=== PATIENT | female | born 1970 | race Caucasian/White ===

== ENCOUNTER 2022-09-15 16:42 | Emergency (ER) | payer SELFPAY ==
[2022-09-15 16:57] VITALS: BP 156/98; PULSE 77; TEMP 36.6; O2SAT 98; BMI 52.0
[2022-09-15 17:31] LABS: Add Urine Culture? Yes; Add Urine Microscopic? YES; Bacteria Urine 2+ /hpf; Bilirubin Urine Neg (Negative); Blood Urine 3+ (Negative); Glucose Urine UA Norm (Normal); Ketones Urine Negative (Negative); Leukocyte Esterase Urine 2+ (Negative); Nitrate Urine Negative (Negative); Protein Urine Neg (Negative); Specific Gravity, Urine 1.025 (1.005-1.030); Urine Appearance Hazy (CLEAR); Urine Color Straw (Yellow); Urobilinogen Urine Norm (Negative); WBC Urine 40-55 /hpf (0-5); pH Urine 5 (5-7)
[2022-09-15 18:09] LABS: Basophils # 0.1 10^3/uL (0.0-0.1); Basophils % 0.7 %; Eosinophils # 0.5 10^3/uL (0.0-0.8); Eosinophils % 5.1 %; Hematocrit 42.9 % (37.0-47.0); Hemoglobin 13.8 g/dL (11.5-15.3); Lymphocytes # 3.3 10^3/uL (0.8-4.8); Lymphocytes % 33.4 %; Mean Corpuscular HGB Conc 32.2 g/dL (30.0-36.0); Mean Corpuscular Hemoglobin 31.7 pg (28.0-34.0); Mean Corpuscular Volume 98.4 fl (81-99); Mean Platelet Volume 10.8 fL (7.4-10.4); Monocytes # 0.7 10^3/uL (0.2-0.9); Monocytes % 7.2 %; Neutrophils # 5.25 10^3/uL (1.8-7.7); Neutrophils % 53.3 %; Nucleated Red Blood Cells % 0 %; Platelet Count 190 10^3/cmm (130-400); Red Blood Count 4.36 10^6/uL (4.1-5.3); Red Cell Distribution Width 12.9 % (12.1-15.1); White Blood Count 9.9 10^3/uL (4.0-10.0)
[2022-09-15 18:28] LABS: Alanine Aminotransferase 22 U/L (0-33); Albumin Level 3.9 g/dL (3.5-5.2); Alkaline Phosphatase 78 U/L (35-105); Anion Gap 10.3 (5-19); Aspartate Amino Transferase 17 U/L (0-32); Blood Urea Nitrogen 14 mg/dL (6-20); Carbon Dioxide 28 mmol/L (22-29); Chloride 98 mmol/L (98-107); Globulin 2.6 g/dL (1.3-4.6); Glomerular Filtration Rate 104.6 mL/min (90-130); Glucose 90 mg/dL (65-115); Lipase 64 U/L (13-60); Osmolality Calculated 274 mOsm/kg (285-295); Potassium 4.3 mmol/L (3.5-5.1); Sodium 132 mmol/L (136-145); Total Bilirubin 0.3 mg/dL (0.15-1.2); Total Protein 6.5 g/dL (6.6-8.7)
[2022-09-15 18:34] LABS: HCG, Serum Qual Negative (Negative)
[2022-09-15 19:39] VITALS: PULSE 75; RESP 16; TEMP 36.7; O2SAT 98
--- NOTE | 2022-09-15 19:40 | W.ED.GENADLT ---
HPI - General Adult General: Chief complaint: Abdominal Pain Stated complaint: sore on leg/urinary pain Time Seen by Provider: 09/15/22 19:19 History of Present Illness: Ms. Rich is a 52-year-old lady presenting to the emergency department with 2 separate concerns. Endorses history of low back pain however now is developed left flank pain for few days without known specific provoking event. She also endorses left leg pain with a red swollen lesion on the anterior frey. Reports some pain in the posterior knee. Symptoms are worse with palpation and movement. Moderate to severe in intensity. Works in [employer] but denies frequent skin infections. No other specific changes in health, exacerbating, or alleviating factors identified. Onset (ago): day(s) Location: back and lower extremity Severity: moderate Quality: stabbing and aching Pain Consistency: constant Exacerbating factors: movement Associated symptoms: Reports no associated symptoms Review of Systems General: Reports: 10 or more systems reviewed and unremarkable except in HPI and below PFSH ED PFSH: Family History Mother Heart attack Hypertension Diabetes Father , at age 50 Heart attack Social History Smoking and tobacco status: current every day smoker Alcohol intake: never Marital status: Single Current occupational status: employed Current occupation: [employer] Physical Exam Const: COMMON NORMALS: alert GENERAL APPEARANCE: cooperative and well developed HENMT: COMMON NORMALS: normocephalic and atraumatic HEAD & SCALP: normocephalic and atraumatic Eye: COMMON NORMALS: conjunctivae normal CONJUNCTIVA: Yes conjunctivae normal SCLERA: sclerae normal Neck/C-Spine: COMMON NORMALS: supple GENERAL: Yes trachea midline Resp: COMMON NORMALS: normal respiratory effort EFFORT & INSPECTION: Yes able to speak in complete sentences Cardio: COMMON NORMALS: regular rate and regular rhythm RATE: regular rate RHYTHM: regular rhythm GI: COMMON NORMALS: Soft to palpation PALPATION: Yes Soft to palpation and No Tenderness to palpation present (GI) Extremity: NARRATIVE EXTREMITY EXAM: Left lower extremity anterior frey with erythema and swelling, no obvious ulcerations. Distal CMS intact. GENERAL: Yes normal exam except as noted and No edema Neuro: COMMON NORMALS: moves all extremities SENSORIUM/ORIENTATION: Yes alert and No Orientation impaired Psych: COMMON NORMALS: mental status grossly normal and Normal thought process present THOUGHT PROCESS: Normal thought process present Course Vital Signs: Vital signs: Vital Signs Temperature 98.1 F 09/15/22 19:39 Pulse Rate 73 09/15/22 21:57 Respiratory Rate 14 09/15/22 21:57 Blood Pressure 113/60 09/15/22 21:57 Pulse Oximetry 96 09/15/22 21:57 Oxygen Delivery Me thod Room Air 09/15/22 21:00 MDM - General Adult Medical Decision Making 52-year-old lady presenting with concerns as noted above. She is nontoxic in appearance. There is evidence clinically of cellulitis. Unremarkable hematologic panel, metabolic panel with mild dehydration, there is evidence of urinary tract infection. No DVT on ultrasound. There is a large 24 mm calculus at the UPJ on the left. She also has constipation. Incidentaloma findings discussed Patient is improved with analgesia and patient is appropriate for outpatient follow-up. Plan for urology follow-up. The results of ED evaluation were discussed with the patient including prescriptions and/or symptomatic cares (if applicable) including appropriate and responsible use, followup plan, and return precautions. The patient verbalized understanding and felt safe for discharge. Medical Records I reviewed the patient's medical records. Lab Data I reviewed the patient's lab results. 09/15/22 17:56 09/15/22 17:56 Radiology Impressions Abdomen/Pelvis CT 09/15/22 20:06 IMPRESSION: 1. Left ureteropelvic junction 24 mm calculus with mild hydronephrosis. 2. Bilateral nonobstructing renal calyceal and infundibular stones measuring up to 18.9 mm on the right. 3. Constipation. 4. Hepatic steatosis. 5. Right kidney cysts, negative for follow-up advised. COMMENTS: Consistent with the [employer]'s Incidental Findings Committee white paper (J Am Brian Radiol 2018): Any incidental renal lesion less than 1 cm or classified as too small to characterize, or any incidental cystic renal lesion characterized as simple-appearing, is likely benign. No follow-up imaging is recommended for these lesions per consensus recommendations based on imaging criteria. Venous Duplex 09/15/22 20:27 IMPRESSION: No evidence of deep vein thrombosis. Laboratory Results WBC 9.9 10^3/uL (4.0-10.0) 09/15/22 17:56 RBC 4.36 10^6/uL (4.1-5.3) 09/15/22 17:56 Hgb 13.8 g/dL (11.5-15.3) 09/15/22 17:56 Hct 42.9 % (37.0-47.0) 09/15/22 17:56 MCV 98.4 fl (81-99) 09/15/22 17:56 MCH 31.7 pg (28.0-34.0) 09/15/22 17:56 MCHC 32.2 g/dL (30.0-36.0) 09/15/22 17:56 RDW 12.9 % (12.1-15.1) 09/15/22 17:56 Plt Count 190 10^3/cmm (130-400) 09/15/22 17:56 MPV 10.8 fL (7.4-10.4) H 09/15/22 17:56 Neut % (Auto) 53.3 % 09/15/22 17:56 Lymph % (Auto) 33.4 % 09/15/22 17:56 [place] % (Auto) 7.2 % 09/15/22 17:56 Eos % (Auto) 5.1 % 09/15/22 17:56 Baso % (Auto) 0.7 % 09/15/22 17:56 Neut # (Auto) 5.25 10^3/uL (1.8-7.7) 09/15/22 17:56 Lymph # (Auto) 3.3 10^3/uL (0.8-4.8) 09/15/22 17:56 [place] # (Auto) 0.7 10^3/uL (0.2-0.9) 09/15/22 17:56 Eos # (Auto) 0.5 10^3/uL (0.0-0.8) 09/15/22 17:56 Baso # (Auto) 0.1 10^3/uL (0.0-0.1) 09/15/22 17:56 Nucleated RBC % (auto) 0 % 09/15/22 17:56 Nucleated RBCs # 0.0 /100WBC 09/15/22 17:56 Sodium 132 mmol/L (136-145) L 09/15/22 17:56 Potassium 4.3 mmol/L (3.5-5.1) 09/15/22 17:56 Chloride 98 mmol/L (98-107) 09/15/22 17:56 Carbon Dioxide 28 mmol/L (22-29) 09/15/22 17:56 Anion Gap 10.3 (5-19) 09/15/22 17:56 BUN 14 mg/dL (6-20) 09/15/22 17:56 Creatinine 0.6 mg/dL (0.5-0.9) 09/15/22 17:56 GFR Calculation 104.6 mL/min (90-130) 09/15/22 17:56 Glucose 90 mg/dL (65-115) 09/15/22 17:56 Calculated Osmolality 274 mOsm/kg (285-295) L 09/15/22 17:56 Calcium 9.0 mg/dL (8.5-10.5) 09/15/22 17:56 Total Bilirubin 0.3 mg/dL (0.15-1.2) 09/15/22 17:56 AST 17 U/L (0-32) 09/15/22 17:56 ALT 22 U/L (0-33) 09/15/22 17:56 Alkaline Phosphatase 78 U/L (35-105) 09/15/22 17:56 Total Protein 6.5 g/dL (6.6-8.7) L 09/15/22 17:56 Albumin 3.9 g/dL (3.5-5.2) 09/15/22 17:56 Globulin 2.6 g/dL (1.3-4.6) 09/15/22 17:56 Lipase 64 U/L (13-60) H 09/15/22 17:56 HCG, Qual Negative (Negative) 09/15/22 17:56 Urine Color Straw (Yellow) 09/15/22 17:05 Urine Appearance Hazy (CLEAR) A 09/15/22 17:05 Urine pH 5 (5-7) 09/15/22 17:05 Ur Specific [place] 1.025 (1.005-1.030) 09/15/22 17:05 Urine Protein Neg (Negative) 09/15/22 17:05 Urine Glucose (UA) Norm (Normal) 09/15/22 17:05 Urine Ketones Negative (Negative) 09/15/22 17:05 Urine Blood 3+ (Negative) H 09/15/22 17:05 Urine Nitrate Negative (Negative) 09/15/22 17:05 Urine Bilirubin Neg (Negative) 09/15/22 17:05 Urine Urobilinogen Norm mg/dL (Negative) 09/15/22 17:05 Ur Leukocyte Esterase 2+ (Negative) H 09/15/22 17:05 Urine RBC 10-15 /hpf (0-2) H 09/15/22 17:05 Urine WBC 40-55 /hpf (0-5) H 09/15/22 17:05 Ur Squamous Epith Cells 5-10 /hpf (0-5) H 09/15/22 17:05 Amorphous Sediment Not Reportable 09/15/22 17:05 Urine Bacteria 2+ /hpf (NONE) H 09/15/22 17:05 Discharge Plan Discharge Patient Disposition: Home Clinical Impression: Flank pain, Nephrolithiasis, UTI (urinary tract infection), Cellulitis Condition: Stable Prescriptions: New ondansetron 4 mg tablet,disintegrating 4 mg PO Q8H PRN (Reason: nausea and vomiting) Qty: 15 0RF oxycodone 5 mg tablet 5 mg PO Q4H PRN (Reason: pain) Qty: 10 0RF Miralax 17 gram powder in packet 17 g PO BID Qty: 30 0RF Rx Instructions: Adjust between 1 and 3 times daily for multiple applesauce consistency stools per day No Action albuterol sulfate 90 mcg/actuation HFA aerosol inhaler 2 puff inhalation Q6H PRN Discharge Orders: Discharge ED (Routine); Ordered 09/15/22 Ordered By: Mamadou Bean Discharge Diet: Advance as tolerated and Clear Liquid Discharge Activity: Increase activity as tolerated Patient Instructions: Levofloxacin (By mouth), Constipation (ED), Urinary Tract Infection in Women (ED), Cellulitis (ED), Opioid Safety Activity Restrictions/Additional Instructions: Thank you for visiting the emergency department. You were seen and evaluated for back/flank pain as well as skin concern. The most likely cause of your symptoms is related to urinary tract infection and cellulitis which will be treated with antibiotics. I will also prescribe pain medication and nausea medication. Please ensure that you are staying hydrated. Use pain medication cautiously as opioids can cause side effects. You may use [id number] medications such as acetaminophen and ibuprofen for pain however please do not exceed the daily recommended dosage as listed on the packaging and please keep in mind that many namebrand medications contain the same active ingredients. Please avoid these medications if previously instructed to do so by another physician due to other underlying medical condition. Additionally you have constipation which I will prescribe MiraLAX for. As discussed you do have kidney stones, I will message case management for urology follow-up. Please follow-up with your primary care provider. Return to the emergency department for fevers, uncontrolled pain, changes in urine output, worsening symptoms despite treatment, or anything else that you are concerned about and feel needs emergency department evaluation. Coding Level of Care Code ED Fruit Picker Machine Operator for Sadie Vega
[2022-09-15 20:00] VITALS: RESP 16
--- NOTE | 2022-09-15 20:06 | CTR_ITS ---
PROCEDURE INFORMATION: Exam: CT Abdomen And Pelvis With Contrast Exam date and time: 09/15/2022 8:31 PM Age: 52 years old Clinical indication: Abdominal pain; Localized; Left lower quadrant (llq); Additional info: L flank pain TECHNIQUE: Imaging protocol: Computed tomography of the abdomen and pelvis with contrast. Radiation optimization: All CT scans at this facility use at least one of these dose optimization techniques: automated exposure control; mA and/or kV adjustment per patient size (includes targeted exams where dose is matched to clinical indication); or iterative reconstruction. Contrast material: OMNI 350; Contrast volume: 100 ml; Contrast route: INTRAVENOUS (IV); REPORTING DATA: Count of CT and Cardiac NM exams in prior 12 months: This patient has received 0 known CTs and 0 known cardiac nuclear medicine studies in the 12 months prior to the current study. COMPARISON: CT chest w con* [id number] 08/05/2017 8:22 PM RADIATION DOSE METRICS: Total DLP (mGy-cm): 1145.83 FINDINGS: Liver: Hepatic steatosis. Gallbladder and bile ducts: Normal. No calcified stones. No ductal dilation. Pancreas: Normal. No ductal dilation. Spleen: Normal. No splenomegaly. Adrenal glands: Normal. No mass. Kidneys and ureters: Left ureteropelvic junction 24 mm calculus with mild hydronephrosis. Right kidney cysts, negative for follow-up advised. Stomach and bowel: Constipation. Appendix: No evidence of appendicitis. Intraperitoneal space: Unremarkable. No free air. No significant fluid collection. Vasculature: Unremarkable. No abdominal aortic aneurysm. Lymph nodes: Unremarkable. No enlarged lymph nodes. Urinary bladder: Unremarkable as visualized. Reproductive: Unremarkable as visualized. Bones/joints: Unremarkable. No acute fracture. Soft tissues: Unremarkable. Other findings: Bilateral nonobstructing renal calyceal and infundibular stones measuring up to 18.9 mm on the right. CT/CT abdomen pelvis w con* [id number] IMPRESSION: 1. Left ureteropelvic junction 24 mm calculus with mild hydronephrosis. 2. Bilateral nonobstructing renal calyceal and infundibular stones measuring up to 18.9 mm on the right. 3. Constipation. 4. Hepatic steatosis. 5. Right kidney cysts, negative for follow-up advised. COMMENTS: Consistent with the [place] [employer]'s Incidental Findings Committee white paper (J Am Brian Radiol 2018): Any incidental renal lesion less than 1 cm or classified as too small to characterize, or any incidental cystic renal lesion characterized as simple-appearing, is likely benign. No follow-up imaging is recommended for these lesions per consensus recommendations based on imaging criteria.
--- NOTE | 2022-09-15 20:20 | PC.NURSE ---
pt brought back to ER 7 from waiting room by nurse tech and placed on monitors.
--- NOTE | 2022-09-15 20:27 | USR_ITS ---
PROCEDURE INFORMATION: Exam: US Duplex Left Lower Extremity Veins, Limited Exam date and time: 09/15/2022 8:43 PM Age: 52 years old Clinical indication: Swelling (edema) of limb; Lower extremity, left; Additional info: Leg pain, redness, swelling TECHNIQUE: Imaging protocol: Real-time duplex ultrasound of the left extremity with 2-D youssef scale, color Doppler flow and spectral waveform analysis including responses to compression and other maneuvers (when performed) with image documentation. Limited exam focused on the left lower extremity veins. COMPARISON: CT abdomen pelvis w con* [id number] 09/15/2022 8:31 PM FINDINGS: Left deep veins: Unremarkable. The common femoral, femoral, proximal profunda femoral and popliteal veins are patent without thrombus. Normal Doppler waveforms. Normal compressibility and/or augmentation response. Left superficial veins: Unremarkable. Saphenofemoral junction is patent without thrombus. Soft tissues: Unremarkable. US/CV venous duplex [facility] [id number] IMPRESSION: No evidence of deep vein thrombosis.
[2022-09-15 20:31] VITALS: RESP 16
[2022-09-15] MEDS: morphine 4 mg/mL SDV 1 mL IVP (20:31)
[2022-09-15] MEDS: iohexol 350 mg/mL 500 mL Btl (per mL) IV (20:35)
[2022-09-15 21:00] VITALS: BP 145/80; PULSE 90; RESP 16; O2SAT 97
[2022-09-15 21:57] VITALS: BP 113/60; PULSE 73; RESP 14; O2SAT 96
--- NOTE | 2022-09-16 10:28 | DCPLANNER ---
Addendum entered by Natty Powers 09/19/22 09:04: Patient had a follow up appointment scheduled with urology - patient did attend appointment. Addendum entered by Natty Powers 09/16/22 15:10: Patient has a follow up appointment scheduled for Saturday, September 17, 2022 at 4:[address] Campos at urology. Original Note: r d manager had message to schedule a follow up appointment for patient with urology. r d manager sent patients information to the front office staff at urology. Patients information will be printed and reviewed. Clinic will call patient with appointment information.
--- NOTE | 2022-09-20 11:22 | DCPLANNER ---
Patient was called due to no primary care physician - no answer at this time.
== END 2022-09-15 22:00 | disposition home or self-care (01) ==
PROVIDERS: Emergency Medicine; Emergency Provider Emergency Medicine
DX: N13.6 Pyonephrosis (principal); L03.116 Cellulitis of left lower limb; F17.210 Nicotine dependence, cigarettes, uncomplicated
CPT/HCPCS: 36415; 74177; 80053; 81001; 83690; 84703; 85025; 87086; 93971; 96374; 99285; J2270; Q9967

== ENCOUNTER 2022-09-17 14:42 | Outpatient (CLI) | payer SELFPAY ==
--- NOTE | 2022-09-17 14:47 | XR_ITS ---
WS: [id number] Exam: XR [id number] Date/Time of Exam: 09/17/2022 2:47 PM Reason For Exam: STONES No bowel obstruction or free air. Large calcifications noted in the region of both kidneys apparently represent known renal stones. Additional smaller stones are probably present bilaterally. No sign of organ enlargement. Regional bony elements are intact. XR/XR KUB [id number] IMPRESSION: 1. Large bilateral renal calculi. 2. No acute abdominal process.
== END 2022-09-17 14:43 | disposition home or self-care (01) ==
LOC: LAB 14:47
PROVIDERS: PCP Urology; Visit Provider Urology
DX: N20.0 Calculus of kidney (principal)
CPT/HCPCS: 74018

== ENCOUNTER → 2022-09-18 14:48 | Outpatient (BNVA) | payer SELFPAY | PROVIDERS: Visit Provider Urology | DX: N20.0 Calculus of kidney (principal) | CPT/HCPCS: 81003 ==

== ENCOUNTER → 2023-09-08 10:11 | Outpatient (BNVA) | payer OTHER, SELFPAY | PROVIDERS: Visit Provider Nurse Practitioner Family | DX: E66.01 Morbid (severe) obesity due to excess calories (principal); Z68.43 Body mass index [BMI] 50.0-59.9, adult | CPT/HCPCS: 80053; 80061; 83036; 84443; 85025 ==

== ENCOUNTER 2023-09-19 09:45 | Outpatient (CLI) | payer OTHER, SELFPAY ==
--- NOTE | 2023-09-19 10:00 | CT_ITS ---
WS: [id number] LDCT LUNG CANCER SCREENING HISTORY: screening TECHNIQUE: Axial imaging performed from the apices to 1 cm below the costophrenic angles. Coronal and sagittal reformats are submitted with axial MIP series. All CT scans at [facility] use at least one of these dose optimization techniques: automated exposure control; mA and/or kV adjustment per patient size (includes targeted exams where dose is matched to clinical indication); or iterativ e reconstruction. DLP: 165.79 mGy.cm DIvol: Mean CTDIvol: 4.20 (mGy) COMPARISON: None available. Diagnostic quality: Satisfactory Lungs: No pulmonary nodule or mass. No pneumonia. No endobronchial lesions. Heart: Normal size heart with no pericardial effusion.. No pericardial effusion. Other findings: Very minimal atherosclerosis thoracic aorta. No lymph nodes are identified. Small hia horace hernia. Nodular configuration superior pole LEFT kidney similar to 08/05/2017. 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 IMPRESSION: CT/CT lung screening [id number] LUNG-RADS: 1-Negative FOLLOW UP: 12 Month: Continue annual screening with LDCT OTHER FINDINGS (S MODIFIER): None.
== END 2023-09-19 09:46 | disposition home or self-care (01) ==
LOC: RAD 09:46
PROVIDERS: PCP Nurse Practitioner Family; Visit Provider Nurse Practitioner Family
DX: Z12.2 Encounter for screening for malignant neoplasm of respiratory organs (principal); F17.200 Nicotine dependence, unspecified, uncomplicated; D35.02 Benign neoplasm of left adrenal gland; K44.9 Diaphragmatic hernia without obstruction or gangrene; N28.89 Other specified disorders of kidney and ureter
CPT/HCPCS: 71271

== ENCOUNTER 2023-10-07 14:33 | Outpatient (CLI) | payer OTHER, SELFPAY ==
--- NOTE | 2023-10-07 14:30 | MM_ITS ---
WS: [id number] BILATERAL 3D TOMOSYNTHESIS DIGITAL SCREENING MAMMOGRAPHY WITH CAD CLINICAL INFORMATION: screening HISTORY: Screening mammogram. No current complaints. COMPARISON: Baseline TECHNIQUE: Bilateral CC and MLO views. FINDINGS: Scattered fibroglandular densities bilaterally. No suspicious focal mass, asymmetry, calcifications, or architectural distortion. No evidence of malignancy. MM/[place] [id number] IMPRESSION: BI-RADS: 1-Negative FOLLOW UP: 1 Year Follow-up Recommend return to annual screening mammography.
== END 2023-10-07 14:34 | disposition home or self-care (01) ==
LOC: MOBLMAM 14:37
PROVIDERS: PCP Nurse Practitioner Family; Visit Provider Nurse Practitioner Family
DX: Z12.31 Encounter for screening mammogram for malignant neoplasm of breast
CPT/HCPCS: 77063; 77067